=== PATIENT | male | born 1950 | race Caucasian/White ===

== ENCOUNTER 2020-10-28 05:46 | Day surgery (SDC) | payer MEDICARE, OTHER ==
[2020-10-28] VITALS (12 sets, daily range): BP systolic 130–169; BP diastolic 77–108; PULSE 102–114; TEMP 97.8–98.1
[~2020-10-28] VITALS: Ht 188 cm; Wt 119.4 kg
[2020-10-28] MEDS ORDERED: ELIQUIS 5MG PO (06:08)
[2020-10-28] MEDS ORDERED: PRAVACHOL80 MG PO (06:09)
[2020-10-28] MEDS ORDERED: LASIX 20MG TABL20 MG PO (06:10)
[2020-10-28] MEDS ORDERED: ZESTRIL 20MG TA20 MG PO (06:11)
[2020-10-28] MEDS ORDERED: CARTIA XT120 MG PO (06:11)
[2020-10-28] MEDS ORDERED: JARDIANCE10 PO (06:13)
[2020-10-28] MEDS ORDERED: GLUCOTROL 5M5 MG/TAB PO (06:14)
[2020-10-28] MEDS ORDERED: GLUCOPHAGE500 MG/TAB PO ×2 (06:14→06:55)
[2020-10-28] MEDS ORDERED: NATURAL POTASS595 MG PO (06:15)
[2020-10-28] MEDS ORDERED: VITAMINC1000TA PO (06:16)
[2020-10-28] MEDS ORDERED: EPA FISH OIL1 SGL PO ×2 (06:16→06:58)
--- NOTE | 2020-10-28 06:22 | NUR ---
hand delivered pts EKG to RN nurse and showed her it was reading acute MA
[2020-10-28] MEDS ORDERED: PRINIVIL40 MG PO (06:56)
[2020-10-28 07:03] LABS: HEMATOCRIT 52.8 % (42.0-52.0); HEMOGLOBIN 17.3 g/dl (13.5-18.0); MEAN CELL VOLUME 103 fl (80.0-100.0); MEAN CORPUSCULAR HEMOGLOBIN 34 pg (27.0-31.0); MEAN CORPUSCULAR HGB CONC 33 g/dl (33.0-37.0); RED BLOOD COUNT 5.12 M/mm3 (4.20-5.60); REDCELL DISTRIBUTION WIDTH-CV 13.7 % (11.5-14.5)
[2020-10-28 07:04] LABS: MEAN PLATELET VOLUME 9.5 fl (7.4-10.4); PLATELET COUNT 173 K/mm3 (130-400)
[2020-10-28 07:06] LABS: CALCIUM 9.6 mg/dL (8.4-10.2); CREATININE, serum 0.72 (0.66-1.25); POTASSIUM 4.6 mmol/L (3.4-5.0)
[2020-10-28 07:18] LABS: PROTHROMBIN TIME 11.6 SECONDS (9.7-12.8)
[2020-10-28 07:21] LABS: PARTIAL THROMBOPLASTIN TIME 30.5 SECONDS (26.0-37.0)
[2020-10-28 07:36] LABS: THYROID STIMULATING HORMONE 4.51 uIU/mL (0.465-4.680)
--- NOTE | 2020-10-28 10:43 | NUR ---
Pt is doing well. He is alert and oriented with no pain complaints. He is steady on his feet with no complaints of feeling dizzy. TR band in place with no bleeding noted.Educated pt on meals and oriented him to his room. He is tolerated liquids and stated he will be ordering something to eat soon.
--- NOTE | 2020-10-28 14:29 | NUR ---
Pt resting with eyes closed, even non labored breathing.
--- NOTE | 2020-10-28 15:30 | NUR ---
Pt continues to do well with no complaints
[2020-10-28] MEDS ORDERED: ASPIRIN E.C. 8181 MG PO (17:39)
[2020-10-28] MEDS ORDERED: PLAVIX 75MG TAB75 MG PO (17:39)
--- NOTE | 2020-10-28 18:49 | NUR ---
Pt doing well. All air out of TR band. TR band left in place at this time. Report given
--- NOTE | 2020-10-28 20:00 | NUR ---
Assessment complete. All air has been removed from TR band on right radial area; No signs of bleeding present; sight is now CHANTELLE. Patient has no complaints of pain. Bilateral lower extremity edema is present with no pitting. Pulses are 2/1. Skin is dry all over and luis around his feet. No new concerns, call light in reach. Will continue to monitor.
[2020-10-29 00:03] VITALS: BP 132/77; PULSE 105; TEMP 98
[2020-10-29 03:57] VITALS: BP 133/69; PULSE 97; TEMP 98.3
[2020-10-29 07:44] VITALS: BP 146/85; PULSE 96; TEMP 97.7
[2020-10-29] MEDS ORDERED: TOPROL XL 25MG25 MG PO (10:38)
--- NOTE | 2020-10-29 11:24 | NUR ---
Reviewed discharge instructions with patient as well as prescriptions and follow up appointment. He has called his brother to take him home. No other questions or concners. Informed him to notify nursing when his ride is here.
--- NOTE | 2020-10-29 11:34 | NUR ---
Plans to return home with [facility] at [phone]. PCP is Justin Soares and patient uses [facility] [address] for medications. Patient reports that a friend will transport home. Patient denies having any needs prior to DC. No additional needs assessed at this time.
== END 2020-10-29 11:32 | disposition home or self-care (01) ==
LOC: COL.CAR 05:46 → MEDICAL 09:53 → COL.CAR 10-29 11:32
PROVIDERS: Internal Medicine Cardiovascular Disease
DX: I48.92 Unspecified atrial flutter (principal); I25.10 Atherosclerotic heart disease of native coronary artery without angina pectoris; I35.0 Nonrheumatic aortic (valve) stenosis; I10 Essential (primary) hypertension; E78.5 Hyperlipidemia, unspecified; K75.9 Inflammatory liver disease, unspecified; E11.9 Type 2 diabetes mellitus without complications; M19.90 Unspecified osteoarthritis, unspecified site; E66.9 Obesity, unspecified; I48.91 Unspecified atrial fibrillation; Z79.84 Long term (current) use of oral hypoglycemic drugs; Z88.8 Allergy status to other drugs, medicaments and biological substances; Z68.33 Body mass index [BMI] 33.0-33.9, adult; Z88.1 Allergy status to other antibiotic agents; Z79.899 Other long term (current) drug therapy; Z79.01 Long term (current) use of anticoagulants; Z20.822 Contact with and (suspected) exposure to COVID-19
CPT/HCPCS: OP; C1725; C1769; C1874; C1887; C9600; J1644; J1940; J2250; J2704; J3010; J7030

== ENCOUNTER 2021-03-08 09:35 | Day surgery (SDC) | payer MEDICARE, OTHER ==
[2021-03-08] VITALS (10 sets, daily range): BP systolic 136–170; BP diastolic 70–93; PULSE 69–82; TEMP 98.1
[~2021-03-08] VITALS: Ht 188.1 cm; Wt 119.0 kg
[~2021-03-08 09:35] MED LIST: ASPIRIN E.C. 8181 MG PO; CARTIA XT120 MG PO; ELIQUIS 5MG PO; EPA FISH OIL1 SGL PO; GLUCOPHAGE500 MG/TAB PO; GLUCOTROL 5M5 MG/TAB PO; JARDIANCE10 PO; LASIX 20MG TABL20 MG PO; NATURAL POTASS595 MG PO; PLAVIX 75MG TAB75 MG PO; PRAVACHOL80 MG PO; PRINIVIL40 MG PO; TOPROL XL 25MG25 MG PO; VITAMINC1000TA PO; ZESTRIL 20MG TA20 MG PO
[2021-03-08 10:44] LABS: HEMATOCRIT 38.8 % (42.0-52.0); HEMOGLOBIN 11.1 g/dl (13.5-18.0); MEAN CELL VOLUME 82 fl (80.0-100.0); MEAN CORPUSCULAR HEMOGLOBIN 23 pg (27.0-31.0); MEAN CORPUSCULAR HGB CONC 29 g/dl (33.0-37.0); MEAN PLATELET VOLUME 9.8 fl (7.4-10.4); PLATELET COUNT 220 K/mm3 (130-400); RED BLOOD COUNT 4.74 M/mm3 (4.20-5.60); REDCELL DISTRIBUTION WIDTH-CV 19.1 % (11.5-14.5)
[2021-03-08] MEDS ORDERED: ZESTRIL 20MG TA20 MG PO (10:48)
[2021-03-08] MEDS ORDERED: PROTONIX 40MG T40 MG PO (10:48)
[2021-03-08 10:50] LABS: INR 1.1 (0.8-3.0); PROTHROMBIN TIME 12.2 SECONDS (9.7-12.8)
[2021-03-08 10:53] LABS: PARTIAL THROMBOPLASTIN TIME 27.5 SECONDS (26.0-37.0)
[2021-03-08 10:55] LABS: CALCIUM 9.1 mg/dL (8.4-10.2); CREATININE, serum 0.64 (0.66-1.25)
[2021-03-08] MEDS ORDERED: SPIRIVA RE2.5 MCG/Ac IH (10:57)
[2021-03-08] MEDS ORDERED: PROAIR HFA0.09 MG/AC IH (10:59)
[2021-03-08] MEDS ORDERED: GLUCOSAMINE/CHO1 CA5 PO (11:00)
--- NOTE | 2021-03-08 12:15 | NUR ---
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 No c/o, call light in reach, takes ice water
--- NOTE | 2021-03-08 13:00 | NUR ---
pt ordered lunch, sits on side of bed, site remains the same.
--- NOTE | 2021-03-08 14:15 | NUR ---
pt sitting on side of bed, no c/o, releasing band slowly 2cc air
--- NOTE | 2021-03-08 14:30 | NUR ---
con't to let air out of band, 2cc every 10 min, air out at 1440, bandaid over site, no swelling or edema noted. reviewed discharge inst. with pt, appt given also reviewed moderate sedation activity. reviewed care of site and precautions with verbal understanding. int d'cd intact.
--- NOTE | 2021-03-08 15:10 | NUR ---
pt up in room dressed, discharged to car with brother via w/c
== END 2021-03-08 15:10 | disposition home or self-care (01) ==
LOC: COL.CAR 09:35
PROVIDERS: Internal Medicine Cardiovascular Disease
DX: I25.10 Atherosclerotic heart disease of native coronary artery without angina pectoris (principal); I50.30 Unspecified diastolic (congestive) heart failure; I11.0 Hypertensive heart disease with heart failure; E11.9 Type 2 diabetes mellitus without complications; E78.5 Hyperlipidemia, unspecified; I48.92 Unspecified atrial flutter; I48.91 Unspecified atrial fibrillation; M17.0 Bilateral primary osteoarthritis of knee; I35.0 Nonrheumatic aortic (valve) stenosis; Z79.84 Long term (current) use of oral hypoglycemic drugs; Z79.02 Long term (current) use of antithrombotics/antiplatelets; Z79.899 Other long term (current) drug therapy; Z95.5 Presence of coronary angioplasty implant and graft
CPT/HCPCS: C1769; J1644; J2250; J3010; J7030